=== PATIENT | female | born 1980 | race Caucasian/White ===

== ENCOUNTER 2019-10-09 14:07 | Outpatient (RCR) | payer BC, SELFPAY ==
[2019-10-09 14:11] VITALS: BMI 35.7
[2019-10-09 14:13] VITALS: BMI 35.7
== END 2019-12-12 08:04 | disposition home or self-care (01) ==
LOC: ANHDMC 14:07
PROVIDERS: Visit Provider Internal Medicine
DX: O24.419 Gestational diabetes mellitus in pregnancy, unspecified control (principal); Z71.3 Dietary counseling and surveillance; Z71.89 Other specified counseling; Z3A.28 28 weeks gestation of pregnancy
CPT/HCPCS: 97802; G0108

== ENCOUNTER 2019-12-22 11:45 | Outpatient (RCR) | payer BC, SELFPAY ==
[2019-11-20 11:55] VITALS: BP 114/62; PULSE 100
[2019-11-24 12:03] VITALS: BP 114/58; PULSE 81
[2019-11-27 12:44] VITALS: BP 110/73; PULSE 84
[2019-12-01 12:16] VITALS: BP 123/65; PULSE 81
[2019-12-04 12:59] VITALS: BP 113/64; PULSE 83
[2019-12-08 13:20] VITALS: BP 116/62; PULSE 81
[2019-12-15 15:28] VITALS: BP 112/61; PULSE 70
[2019-12-18 12:50] VITALS: BP 117/69; PULSE 86
--- NOTE | ~2019-12-22 | US_ITS ---
EXAMINATION: US OB BPP wo non-stress DATE: 11/27/2019 12:33 INDICATION: Maternal gestational diabetes. Third trimester. TECHNIQUE: Real-time pelvic ultrasound was performed. The interpreting radiologist was not present fo r the study. COMPARISON: None. FINDINGS: There is a single living fetus in vertex presentation. The placenta is fundal. heart rate is 1 38 beats per minute (bpm). Biophysical profile performed by the technologist: breathing (30 sec sustained breathing in 30 minutes): 2 out of 2 movement (3 gross body movements in 30 minutes): 2 out of 2 tone (one episode of rsxkwxi-gxsapzwvr-yiornad limb movement): 2 out of 2 Amniotic fluid pocket (2 cm): 2 out of 2 Total score: 8 out of 8 IMPRESSION: 1. Single living fetus in vertex presentation with heart rate of 138 bpm. 2. Biophysical profile 8 out of 8. Reviewed, dictated and finalized at location A.
--- NOTE | ~2019-12-22 | US_ITS ---
EXAMINATION: US OB BPP wo non-stress DATE: 12/18/2019 12:42 INDICATION: Gestational diabetes TECHNIQUE: Real-time pelvic ultrasound was performed. The interpreting radiologist was not present fo r the study. COMPARISON: None. FINDINGS: There is a single living fetus in vertex presentation. The placenta is anterior. heart rate is 141 beats per minute (bpm). Biophysical profile performed by the technologist: breathing (30 sec sustained breathing in 30 minutes): 2 out of 2 movement (3 gross body movements in 30 minutes): 2 out of 2 tone (one episode of toyvyff-abhuikrfo-fuqdlwh limb movement): 2 out of 2 Amniotic fluid pocket (2 cm): 2 out of 2 Total score: 8 out of 8 IMPRESSION: 1. Single living fetus in vertex presentation with heart rate of 141 bpm. 2. Biophysical profile 8 out of 8. Reviewed, dictated and finalized at location A.
--- NOTE | ~2019-12-22 | US_ITS ---
EXAMINATION: US OB BPP wo non-stress EXAM DATE: 11/20/2019 12:31 INDICATION: Gestational diabetes. 3rd trimester. TECHNIQUE: Pelvic obstetrical transabdominal sonogram was performed by a technologist. There are mu ltiple grayscale and Doppler images available for interpretation. There are no earlier studies of th is gestation for comparison. FINDINGS: There is a single fetus identified in vertex presentation with a heart rate of 155 beats pe r minute. The placenta is located in the posterior fundal position. There is no sonographic evidence of retroplacental hemorrhage identified. BIOPHYSICAL PROFILE (performed by the technologist) breathing (30 sec sustained breathing in 30 minutes): 2 out of 2 movement (3 gross body movements in 30 minutes): 2 out of 2 tone (one episode of efwfzeb-sfpadswfv-udewtpt limb movement): 2 out of 2 Amniotic fluid pocket (2 cm): 2 out of 2 Total score: 8 out of 8 IMPRESSION: 1. Single fetus with heart rate of 155 bpm. 2. Normal biophysical profile score of 8 out of 8. Reviewed, dictated and finalized at location B.
--- NOTE | ~2019-12-22 | US_ITS ---
EXAMINATION: US OB BPP wo non-stress DATE: 12/04/2019 12:48 INDICATION: Gestational diabetes TECHNIQUE: Real-time pelvic ultrasound was performed. The interpreting radiologist was not present fo r the study. COMPARISON: 11/27/2019 FINDINGS: There is a single living fetus in vertex presentation. The placenta is anterior. heart rate is 155 beats per minute (bpm). Biophysical profile performed by the technologist: breathing (30 sec sustained breathing in 30 minutes): 2 out of 2 movement (3 gross body movements in 30 minutes): 2 out of 2 tone (one episode of hskgokr-ndartxtif-wbkiiui limb movement): 2 out of 2 Amniotic fluid pocket (2 cm): 2 out of 2 Total score: 8 out of 8 IMPRESSION: 1. Single living fetus in vertex presentation. 2. Biophysical profile 8 out of 8. Reviewed, dictated and finalized at location A.
--- NOTE | ~2019-12-22 | US_ITS ---
EXAMINATION: US OB BPP wo non-stress DATE: 12/11/2019 14:28 INDICATION: Gestational diabetes TECHNIQUE: Real-time pelvic ultrasound was performed. The interpreting radiologist was not present fo r the study. COMPARISON: 12/04/2019 FINDINGS: There is a single living fetus in vertex presentation. The placenta is anterior. heart rate is 136 beats per minute (bpm). Biophysical profile performed by the technologist: breathing (30 sec sustained breathing in 30 minutes): 2 out of 2 movement (3 gross body movements in 30 minutes): 2 out of 2 tone (one episode of ccvdsly-tnpxujjro-agdkkuv limb movement): 2 out of 2 Amniotic fluid pocket (2 cm): 2 out of 2 Total score: 8 out of 8 IMPRESSION: 1. Single living fetus in vertex presentation. 2. Biophysical profile 8 out of 8. Reviewed, dictated and finalized at location B.
[2019-12-22 12:26] VITALS: BP 114/71; PULSE 75
== END 2019-12-29 08:02 | disposition home or self-care (01) ==
LOC: ANHOBOP 11:45
PROVIDERS: PCP Internal Medicine; Visit Provider Obstetrics & Gynecology
DX: O24.419 Gestational diabetes mellitus in pregnancy, unspecified control (principal); Z3A.33 33 weeks gestation of pregnancy; Z3A.34 34 weeks gestation of pregnancy; Z3A.35 35 weeks gestation of pregnancy; Z3A.36 36 weeks gestation of pregnancy; Z3A.37 37 weeks gestation of pregnancy; Z3A.38 38 weeks gestation of pregnancy
CPT/HCPCS: 59025; 76819

== ENCOUNTER 2019-12-25 11:32 | Outpatient (RCR) | payer BC, SELFPAY ==
--- NOTE | ~2019-12-25 | US_ITS ---
EXAMINATION: US OB follow up w BPP DATE: 12/25/2019 13:26 INDICATION: Gestational diabetes. Third trimester. TECHNIQUE: Real-time pelvic ultrasound was performed. COMPARISON: Ultrasound 12/18/2019, 11/20/2019 FINDINGS: There is a single living fetus in vertex presentation. The placenta is anterior. heart rate is 143 beats per minute (bpm). The amniotic fluid index is 11.1 cm, which is normal. The following biometric data were obtained: Biparietal diameter (BPD): 9.2 cm; head circumference (HC): 33.3 cm; abdominal circumference (AC): 35 .2 cm; femur length (FL): 7.7 cm. These measurements are concordant. Estimated weight is 3604 g +/- 541 g, which correlates with 72nd percentile when 01/04/20 is use d as estimated date of delivery. As single measurements, these parameters are each equal to the following estimated gestational ages w ith ranges of +/- 2 standard deviations: BPD: 37 weeks 3 days (34 weeks 1 days - 40 weeks 4 days). HC: 38 weeks 0 days (35 weeks 2 days - 40 weeks 5 days). AC: 39 weeks 1 days (36 weeks 1 days - 42 weeks 1 days). FL: 39 weeks 3 days (36 weeks 2 days - 42 weeks 3 days). estimated gestational age based solely on measurements from this exam is 38 weeks 4 days +/- 2 weeks 5 days. Biophysical profile performed by the technologist: breathing (30 sec sustained breathing in 30 minutes): 2 out of 2 movement (3 gross body movements in 30 minutes): 2 out of 2 tone (one episode of nulnqsd-byebqwjvd-rqioyvc limb movement): 2 out of 2 Amniotic fluid pocket (2 cm): 2 out of 2 Total score: 8 out of 8 IMPRESSION: 1. Single living fetus in vertex presentation. 2. Estimated weight is 3604 g +/- 541 g, which correlates with 72nd percentile when 01/04/20 is used as estimated date of delivery. 3. Biophysical profile 8 out of 8. Reviewed, dictated and finalized at location A. IMPRESSION: 1. Single living fetus in vertex presentation. 2. Estimated weight is 3604 g +/- 541 g, which correlates with 72nd perc entile when 01/04/20 is used as estimated date of delivery. 3. Biophysical profile 8 out of 8.
[2019-12-25 13:46] VITALS: BP 115/58
== END 2019-12-29 08:02 | disposition home or self-care (01) ==
LOC: ANHOBOP 11:32
PROVIDERS: PCP Internal Medicine; Visit Provider Obstetrics & Gynecology
DX: O24.419 Gestational diabetes mellitus in pregnancy, unspecified control (principal); Z3A.38 38 weeks gestation of pregnancy
CPT/HCPCS: 59025; 76816; 76819

== ENCOUNTER 2019-12-28 06:08 | Inpatient (IN) | payer BC, SELFPAY ==
[2019-12-28] VITALS (85 sets, daily range): BP systolic 89–128; BP diastolic 35–92; PULSE 52–277; RESP 16–18; TEMP 36.5–37.1; O2SAT 99–100; BMI 35.8
[2019-12-28] MEDS: LACTATED RINGERS 1,000 ML 125 ML IV CONT ×3 (07:34→11:14)
[2019-12-28] MEDS: OXYTOCIN 30 UNITS/NS 500 ML 30 UNITS/500 ML BAG IV CONT (07:35)
[2019-12-28 07:39] LABS: Basophils Percent Auto 0.1 % (0.2-1.2); Eosinophils Percent Auto 0.3 % (0-4.4); Hematocrit 36.9 % (37.0-47.0); Hemoglobin 12.1 g/dL (12.0-15.0); Immature Granulocyte Absolute 0.05 K/mm3 (0.00-0.031); Immature Granulocyte Percent A 0.6 % (0-0.5); Lymphocytes Absolute Auto 1.59 K/mm3 (0.9-3.2); Lymphocytes Percent Auto 18.2 % (18.3-44.2); Mean Corpuscular HGB Conc 32.8 g/dl (32-36); Mean Corpuscular Hemoglobin 29.7 pg (26-34); Mean Corpuscular Volume 90.7 fl (80-100); Mean Platelet Volume 10.2 fl (7.4-10.4); Monocytes Absolute Auto 0.6 K/mm3 (0.1-0.6); Neutrophils Absolute Auto 6.5 K/mm3 (1.3-6.7); Neutrophils Percent Auto 73.8 % (45.5-73.1); Platelet Count Result 277 k/mm3 (150-375); Red Blood Count 4.07 M/mm3 (4.2-5.4); Red Cell Distribution Width 15.2 % (11.5-14.5); White Blood Count 8.7 K/mm3 (4.5-10.0)
[2019-12-28 07:58] LABS: Alanine Aminotransferase 16 U/L (4-35); Albumin Level 3.4 g/dL (3.5-5.1); Alkaline Phosphatase 116 U/L (38-126); Anion Gap 6 mmol/L (8-16); Aspartate Amino Transferase 28 U/L (14-36); Bilirubin,Total 0.3 mg/dL (0.2-1.3); Blood Urea Nitrogen 17 mg/dL (7-17); Calcium 9.2 mg/dL (8.4-10.2); Carbon Dioxide 20 mmol/L (22-30); Chloride 108 mmol/L (98-107); Estimated Glomerular Filt Rate > 60; Glucose 117 mg/dL (65-105); Potassium 3.7 mmol/L (3.4-5.0); Sodium 134 mmol/L (137-145)
--- NOTE | 2019-12-28 08:13 | LDADM ---
This patient, Edy Couch, was admitted to Labor/Delivery/Recovery 103 on 12/28/19 at 06:08. Plans for labor, pain management and were discussed with patient. Patient/family oriented to hospital policies and general routines including ID bracelet, bed and alarms, visiting hours, pain management, procedures, bathroom and other care routines, personal items, smoking policy, room service/diet and guest tray routines, infant security routines,call light, and visiting hours. Patient/Family are encouraged to report perceived risks to care and to ask questions if they do not understand what they are told or what they should do. See OBIX for further documentation.
--- NOTE | 2019-12-28 09:30 | WPDANESEPP ---
Anes - Eval Pre Procedure Procedure: labor epidural Date/Time: 12/28/19 09:30 Preop Diagnosis: labor pain Pre Op Diagnosis: Induction of Labor Patient Data Age: 39 Gender: F Height: Weight: Last Vital Signs Pulse 63 12/28/19 09:28 BP 101/49 L 12/28/19 09:28 Pulse Ox 100 12/28/19 09:28 Allergies Allergy/AdvReac Type Severity Reaction Status Date / Time amoxicillin AdvReac Mild yeast Verified 12/25/19 14:02 infection Home Medications Medication Instructions Recorded Confirmed Type PNV cmb#95-ferrous fumarate-FA 1 tablet PO DAILY 12/25/19 12/25/19 History [] Laboratory Tests 12/28/19 12/28/19 12/28/19 07:27 07:27 07:27 WBC 8.7 K/mm3 K/mm3 (4.5-10.0) RBC 4.07 M/mm3 L M/mm3 (4.2-5.4) Hgb 12.1 g/dL g/dL (12.0-15.0) Hct 36.9 % L % (37.0-47.0) MCV 90.7 fl fl (80-100) MCH 29.7 pg pg (26-34) MCHC 32.8 g/dl g/dl (32-36) RDW 15.2 % H % (11.5-14.5) Plt Count 277 k/mm3 k/mm3 (150-375) MPV 10.2 fl fl (7.4-10.4) Immature Gran % (Auto) 0.6 % H % (0-0.5) Neut % (Auto) 73.8 % H % (45.5-73.1) Lymph % (Auto) 18.2 % L % (18.3-44.2) Gilchrist % (Auto) 7.0 % % (2.6-8.5) Eos % (Auto) 0.3 % % (0-4.4) Baso % (Auto) 0.1 % L % (0.2-1.2) Lymph # (Auto) 1.59 K/mm3 K/mm3 (0.9-3.2) Gilchrist # (Auto) 0.6 K/mm3 K/mm3 (0.1-0.6) Eos # (Auto) 0.0 K/mm3 K/mm3 (0-0.3) Baso # (Auto) 0.0 K/mm3 K/mm3 (0.0-0.1) Abs Immat Gran (auto) 0.05 K/mm3 H K/mm3 (0.00-0.031) Absolute Neuts (auto) 6.5 K/mm3 K/mm3 (1.3-6.7) Absolute Nucleated RBC 0.0 K/mm3 K/mm3 (0.0-0.012) Nucleated RBC % 0.0 % % (0.0-0.2) Sodium 134 mmol/L L mmol/L (137-145) Potassium 3.7 mmol/L mmol/L (3.4-5.0) Chloride 108 mmol/L H mmol/L (98-107) Carbon Dioxide 20 mmol/L L mmol/L (22-30) Anion Gap 6 mmol/L L mmol/L (8-16) BUN 17 mg/dL mg/dL (7-17) Creatinine 0.50 mg/dL L mg/dL (0.7-1.0) Estim Creat Clear Calc Not Reportable Estimated GFR > 60 (59 - ) Glucose 117 mg/dL H mg/dL (65-105) Calcium 9.2 mg/dL mg/dL (8.4-10.2) Total Bilirubin 0.3 mg/dL mg/dL (0.2-1.3) AST 28 U/L U/L (14-36) ALT 16 U/L U/L (4-35) Alkaline Phosphatase 116 U/L U/L (38-126) Total Protein 6.0 g/dL L g/dL (6.3-8.2) Albumin 3.4 g/dL L g/dL (3.5-5.1) RPR Pending Blood Type Antibody Screen 12/28/19 07:27 WBC RBC Hgb Hct MCV MCH MCHC RDW Plt Count MPV Immature Gran % (Auto) Neut % (Auto) Lymph % (Auto) Gilchrist % (Auto) Eos % (Auto) Baso % (Auto) Lymph # (Auto) Gilchrist # (Auto) Eos # (Auto) Baso # (Auto) Abs Immat Gran (auto) Absolute Neuts (auto) Absolute Nucleated RBC Nucleated RBC % Sodium Potassium Chloride Carbon Dioxide Anion Gap BUN Creatinine Estim Creat Clear Calc Estimated GFR Glucose Calcium Total Bilirubin AST ALT Alkaline Phosphatase Total Protein Albumin RPR Blood Type B Positive Antibody Screen Negative Patient hx anesthesia problems: none Family hx anesthesia problems: none PMFSH Past Medical History Medical History (Updated 12/28/19 @ 09:31 by Andie Bazzi CRNA) Gestational diabetes Migraine Family History Family History Other No pertinent family history Social History Social History (Reviewed 0
--- NOTE | 2019-12-28 12:29 | WPDHPUPDATE1 ---
History and Physical Update Update Date/Time: 12/28/19 12:29 History and Physical has been reviewed, including an updated exam of the patient. There are NO changes in the patient's condition. Risks, benefits, and alternatives have been discussed and questions answered. Patient agrees to proceed with procedure.
--- NOTE | 2019-12-28 12:29 | WPDOBADMIT ---
Obstetrics - Admit Note Admission Note: record reviewed. No pertinent additions to the history and/or any subsequent changes in the physical findings that are not consistent with the expected course of the were found. Additions to the history and/or subsequent changes in the physical findings follow. None.
--- NOTE | 2019-12-28 12:30 | PM.OBPRVD ---
OB - Delivery Note Procedure events: Gestational Diabetes Route of delivery: Laceration description: Periurethral - 1st Degree Delivery repair: chromic Specimen: Yes Estimated blood loss (mL): 300 Anesthesia type: Epidural Disposition: floor Narrative: Patient prepped and draped usual manner for this procedure. Maternal expulsive efforts readily delivered vertex and the rest of baby delivered without difficulty as well. Cord is clamped and cut placenta delivered spontaneously and uterus was well contracted. Cervix vagina vulva were inspected no lacerations or tears. pattie urethral laceration was noted and was bleeding therefore approximated using zevzpz-zm-whdhg suture with good hip hemostasis noted. Red rubber catheter was placed in the urethra to be certain there were still patent and there was no resistance noted. At this point the procedure was considered terminated with immediate postop condition of mother and baby both excellent. Baby Weeks of gestation at delivery: 39 Infant gender: Female Weight (pounds): 7 Weight (ounces): 3 score one minute: 8 score five minutes: 9
[2019-12-28] MEDS: OXYTOCIN 30 UNITS/NS 500 ML 30 UNITS/500 ML BAG 125 UNITS IV CONT (12:36)
[2019-12-28 15:43] LABS: HIV 1/2 Ab P24 Ag Result Negative (Negative)
[2019-12-28] MEDS: IBUPROFEN 600 MG TABLET PO ×2 (16:03→23:28)
[2019-12-28] MEDS: LANOLIN (LANSINOH) 7.5 GM CREAM 1 APPLIC TOPICAL (16:04)
[2019-12-28] MEDS: BENZOCAINE 20% AER SPR (*SP) 56 GM CAN 1 SPRAY TOPICAL (16:05)
[2019-12-28] MEDS: WITCH HAZEL 40 PADS 1 PAD TOPICAL (16:05)
--- NOTE | 2019-12-28 18:34 | PC.NURSE ---
1458 Pt admitted to room 279 per wheelchair from labor and delivery after vaginal delivery of viable female at [address] Davis. Mother is a and is choosing to breast feed . FOB present; Couple oriented to room, staffing and procedures; admission folder reviewed, including mother -baby guide. Pt's VSS and assessment WNL.
[2019-12-29 04:31] LABS: Hematocrit 32.6 % (37.0-47.0); Hemoglobin 10.7 g/dL (12.0-15.0)
[2019-12-29] MEDS: IBUPROFEN 600 MG TABLET PO ×2 (06:57→15:13)
[2019-12-29] MEDS: DOCUSATE SODIUM 100 MG CAPSULE PO (06:57)
[2019-12-29] MEDS: MULTIVIT/MIN/PREN/FOL AC/IRON TABLET 1 TAB PO (06:57)
[2019-12-29 07:00] VITALS: BP 98/54; PULSE 73; RESP 18; TEMP 36.6; O2SAT 100
--- NOTE | 2019-12-29 07:13 | PM.OBDSVD ---
DS: Admitting Diagnosis Admitting Diagnosis Admitting Diagnosis: Induction of Labor OB - DS: Summary OB Procedures : None OB Procedures Intrapartum: Spontaneous Vag Delivery OB Procedures: : None Time Spent with Patient Time attestation: Total time spent providing and/or coordinating discharge services: DS: Data Data Completed and Pending Pending studies at discharge: Pending at discharge 12/28/19 12:34 Surgical [PTH] Routine Labs on day of discharge: Labs from last 24 hours 12/29/19 12/28/19 12/28/19 04:16 07:27 07:27 WBC RBC Hgb 10.7 L Hct 32.6 L MCV MCH MCHC RDW Plt Count MPV Immature Gran % (Auto) Neut % (Auto) Lymph % (Auto) [place] % (Auto) Eos % (Auto) Baso % (Auto) Lymph # (Auto) [place] # (Auto) Eos # (Auto) Baso # (Auto) Abs Immat Gran (auto) Absolute Neuts (auto) Absolute Nucleated RBC Nucleated RBC % Sodium Potassium Chloride Carbon Dioxide Anion Gap BUN Creatinine Estim Creat Clear Calc Estimated GFR Glucose Calcium Total Bilirubin AST ALT Alkaline Phosphatase Total Protein Albumin RPR HIV 1&2 Ab/P24 Ag 4thGn Negative Blood Type B Positive Antibody Screen Negative 12/28/19 12/28/19 12/28/19 07:27 07:27 07:27 WBC 8.7 RBC 4.07 L Hgb 12.1 Hct 36.9 L MCV 90.7 MCH 29.7 MCHC 32.8 RDW 15.2 H Plt Count 277 MPV 10.2 Immature Gran % (Auto) 0.6 H Neut % (Auto) 73.8 H Lymph % (Auto) 18.2 L [place] % (Auto) 7.0 Eos % (Auto) 0.3 Baso % (Auto) 0.1 L Lymph # (Auto) 1.59 [place] # (Auto) 0.6 Eos # (Auto) 0.0 Baso # (Auto) 0.0 Abs Immat Gran (auto) 0.05 H Absolute Neuts (auto) 6.5 Absolute Nucleated RBC 0.0 Nucleated RBC % 0.0 Sodium 134 L Potassium 3.7 Chloride 108 H Carbon Dioxide 20 L Anion Gap 6 L BUN 17 Creatinine 0.50 L Estim Creat Clear Calc Not Reportable Estimated GFR > 60 Glucose 117 H Calcium 9.2 Total Bilirubin 0.3 AST 28 ALT 16 Alkaline Phosphatase 116 Total Protein 6.0 L Albumin 3.4 L RPR Pending HIV 1&2 Ab/P24 Ag 4thGn Blood Type Antibody Screen Discharge Plan Discharge Discharging Clinician: Nazario Davis Patient Disposition: Home, Self-Care Activity: as tolerated Diet: as tolerated Patient Instructions: Antibiotic Form Stand Alone Forms: General Discharge Information Follow-up/Referrals: Nazario Davis MD [Physician] - 3 Weeks Discharge Medications: New ibuprofen 600 mg Tablet 600 mg PO Q6H PRN (Reason: Cramping) Qty: 30 RF: 0 Continued PNV cmb#95-ferrous fumarate-FA [] 28 mg iron- 800 mcg Tablet 1 tablet PO DAILY RF: 0 Date of admission: 12/28/19 06:08 Primary Care Provider: David,Francisco Wilson Admitting Provider: Nazario Davis Attending physician on admission: Nazario Davis Condition: Stable
--- NOTE | 2019-12-29 08:29 | WPDANLDPN2 ---
Anes-Prog Note L&D Date/Time: 12/29/19 08:29 Comfortable throughout: labor and delivery Neuraxial method: epidural Epidural/Spinal procedure site: clean & non-tender Neuro status: Neuro function grossly intact. Cardiovascular status: normal Respiratory status: normal Airway patency: baseline Mental status: baseline Post-Op hydration status: normal Vital Signs: Last Vital Signs Temp 37.1 C 12/28/19 19:00 Pulse 54 L 12/28/19 19:00 Resp 18 12/28/19 19:00 BP 117/60 12/28/19 19:00 Pulse Ox 99 12/28/19 19:00 Pain score (VAS): 04/11 Post-procedural complaints: none Patient feedback: Patient satisfied with anesthetic care.
[2019-12-29 11:43] LABS: Rapid Plasma Reagin Non-Reactive (NonReactive)
[2019-12-29 19:17] VITALS: BP 120/68; PULSE 80; RESP 16; TEMP 36.7; O2SAT 100
[2019-12-30] MEDS: IBUPROFEN 600 MG TABLET PO (05:31)
[2019-12-30 07:55] VITALS: BP 116/59; PULSE 86; RESP 18; TEMP 37.3; O2SAT 99
[2019-12-30 09:06] VITALS: PULSE 86; RESP 18; O2SAT 99
[2019-12-30] MEDS: ACETAMINOPHEN 325 MG TABLET 650 MG PO (09:06)
[2019-12-30] MEDS: DOCUSATE SODIUM 100 MG CAPSULE PO (09:06)
[2019-12-30] MEDS: MULTIVIT/MIN/PREN/FOL AC/IRON TABLET 1 TAB PO (09:06)
--- NOTE | 2019-12-30 10:00 | PC.NURSE ---
Addendum entered by Yosvany Park RN 12/30/19 10:01: Actual time of notation was at 0730 Original Note: PT introductions made and plan of care discussed per post , pain management, breast feeding, daily care activities and pending discharge to home. PT verbalized understanding of such care.
--- NOTE | 2019-12-30 13:00 | PC.NURSE ---
PT received discharge instructions per protocol and verbalized understanding of such instructions.
--- NOTE | 2019-12-30 13:50 | PC.NURSE ---
PT discharged to home ambulatory accompanied by spouse and and taken to waiting car. follow up appts confirmed
--- NOTE | 2020-01-01 09:28 | PM.OBDSVD ---
DS: Admitting Diagnosis Admitting Diagnosis Admitting Diagnosis: Induction of Labor OB - DS: Summary OB Procedures : None OB Procedures Intrapartum: Spontaneous Vag Delivery OB Procedures: : None Time Spent with Patient Time attestation: Total time spent providing and/or coordinating discharge services: DS: Data Data Completed and Pending Completed studies during hospitalization: Pending at discharge 12/28/19 12:34 Surgical [PTH] Routine Discharge Plan Discharge Discharging Clinician: Nazario Davis Patient Disposition: Home, Self-Care Activity: as tolerated Diet: as tolerated Discharge Instructions: Education: Mom and Baby Guide Given to: Mother Follow-Up: Call your delivering provider's office for an appointment to be seen in: 3 weeks Mom and baby should come to the [facility] for the follow-up appointment. Appointment Date/Time: December 31, 2020 at 10:00 am What to expect at your follow-up visit: Blood Pressure Check Call [phone] if you are unable to keep your appointment time. BREAST CARE: * Wear a snug supportive bra. * For engorgement discomfort: Breast Feeding: * Apply warm moist washcloths * Express milk as needed to relieve engorgement * Wear loose clothing Bottle Feeding: * May apply ice packs * For sore nipples: * Identify correct latch-on * Apply warm moist washcloths before and after nursing * Air dry nipples after nursing * May apply Lansinoh cream to nipples PERINEAL CARE: * Until bleeding stops, use your pattie bottle after urinating * Change your pad frequently throughout the day * You may take sitz baths several times a day (fill your bathtub with warm water and soak for 20 minutes.) Do NOT bathe in the water * No tub baths until seen by your physician - You may shower ACTIVITY: * Rest as much as possible. * Do not exercise or lift anything heavier than your baby (such as laundry or other children.) * Avoid stairs or driving as much as possible. * Do not put anything into the vagina. No douching, tampons, or sexual activity until seen by physician. NOTIFY PHYSICIAN IF YOU HAVE ANY QUESTIONS OR IF ANY OF THE FOLLOWING SYMPTOMS OCCUR: * If your perineum becomes red, swollen, or more painful than what you have experienced in the hospital. * If your vaginal bleeding becomes foul smelling. * If your vaginal bleeding becomes more heavy than a period or if your bleeding changes from pink to bright red. However, you may pass an occasional walnut-sized clot once or twice for the first week . * If you experience a sharp, shooting pain in you calves. * If you discover a hard, reddened area on your breast or if you experience flu-like symptoms. * If you have a fever of 100.4 or greater DIET: * Eat regular, well-balanced meals. * Drink plenty of fluids daily. If , drink to thirst. Patient Instructions: Antibiotic Form Stand Alone Forms: General Discharge Information Follow-up/Referrals: Nazario Davis MD [Physician] - 3 Weeks Discharge Medications: New ibuprofen 600 mg Tablet 600 mg PO Q6H PRN (Reason: Cramping) Qty: 30 RF: 0 Continued PNV cmb#95-ferrous fumarate-FA [] 28 mg iron- 800 mcg Tablet 1 tablet PO DAILY RF: 0 Date of admission: 12/28/19 06:08 Primary Care Provider: Guillermo,Francisco Wilson Admitting Provider: Nazario Davis Discharge Date/Time: 12/30/19 13:50 Attending physician on admission: Nazario Davis Condition: Stable
[2020-01-01 10:13] VITALS: BP 129/74; PULSE 69; RESP 16; TEMP 36.7; O2SAT 100
== END 2019-12-30 13:50 | disposition home or self-care (01) | DRG 807 ==
LOC: ANHLDR 06:14 → ANHOB2 15:03
PROVIDERS: Admitting Provider Obstetrics & Gynecology; PCP Internal Medicine; Visit Provider Obstetrics & Gynecology
DX: O24.420 Gestational diabetes mellitus in childbirth, diet controlled (principal); Z37.0 Single live birth; Z3A.39 39 weeks gestation of pregnancy; O77.0 Labor and delivery complicated by meconium in amniotic fluid; O70.0 First degree perineal laceration during delivery; O36.8330 Maternal care for abnormalities of the fetal heart rate or rhythm, third trimester, not applicable or unspecified
CPT/HCPCS: 36415; 80053; 85014; 85018; 85025; 86592; 86703; 86850; 86900; 86901; 88307; A9270; G0432; J2590; J2795; J7120

== ENCOUNTER 2021-03-24 16:20 | Outpatient (CLI) | payer OTHER, SELFPAY ==
--- NOTE | ~2021-03-24 | MM_ITS ---
EXAMINATION: MM screening chantal BI w martin HISTORY: Screening TECHNIQUE: Craniocaudal and mediolateral oblique 3-D tomosynthesis images were obtained and synthetic 2-D images were generated. CAD analysis was submitted and interpreted. COMPARISON: No prior mammogram is available for comparison at this institution. BREAST PARENCHYMAL COMPOSITION: There are scattered areas of fibroglandular density. FINDINGS: There is no evidence of suspicious mass, calcification, or architectural distortion to sugg est malignancy in either breast. There has been no suspicious interval change. IMPRESSION: 1. No mammographic evidence of malignancy. 2. Recommend routine screening mammography in one year. BI-RADS Category 1: Negative Reviewed, dictated and finalized at location A. [employer]
== END 2021-03-24 16:21 | disposition home or self-care (01) ==
LOC: ANHIMG 16:23
PROVIDERS: PCP Internal Medicine; Visit Provider Obstetrics & Gynecology
DX: Z12.31 Encounter for screening mammogram for malignant neoplasm of breast (principal)
CPT/HCPCS: 77063; 77067

== ENCOUNTER 2022-07-20 17:35 | Outpatient (CLI) | payer OTHER, SELFPAY ==
--- NOTE | ~2022-07-20 | MM_ITS ---
EXAMINATION: MM screening chantal BI w martin HISTORY: Screening mammogram TECHNIQUE: Craniocaudal and mediolateral oblique 3-D tomosynthesis images were obtained and synthetic 2-D images were generated. CAD analysis was submitted and interpreted. COMPARISON: 03/24/2021 bilateral screening mammogram examination BREAST PARENCHYMAL COMPOSITION: There are scattered areas of fibroglandular density. FINDINGS: Stable mild fibroglandular asymmetry. There is no evidence of suspicious mass, calcificatio n, or architectural distortion to suggest malignancy in either breast. There has been no suspicious i nterval change. IMPRESSION: 1. No mammographic evidence of malignancy. 2. Recommend routine screening mammography in one year. BI-RADS Category 1: Negative Reviewed, dictated and finalized at location B.
== END 2022-07-20 17:36 | disposition home or self-care (01) ==
LOC: ANHIMG 17:36
PROVIDERS: PCP Internal Medicine; Visit Provider Obstetrics & Gynecology
DX: Z12.31 Encounter for screening mammogram for malignant neoplasm of breast (principal)
CPT/HCPCS: 77063; 77067

== ENCOUNTER 2022-10-27 00:37 | Day surgery (SDC) | payer OTHER, SELFPAY ==
[2022-10-23 16:42] VITALS: BMI 34.3
--- NOTE | 2022-10-23 17:06 | PC.NURSE ---
Report to the Outpatient Waiting Room, entrance under the green pavilion located off [facility], at 0615 on 10-27-22. Planned Procedure Time: 0815. Time changes happen often and if your time is changed the preop area will call you the afternoon before. - You and your visitor will be asked to self-screen and do not enter if you have any COVID symptoms. - A mask is optional within the hospital at this time. Patients may have clear liquids (water, carbonated beverages, clear teas, apple juice) until 3 hours prior to surgery with a maximum of 20 ounces. 0515 - No food from midnight until time of surgery - Infants may have breast milk until 4 hours before surgery, formula 6 hours prior to surgery. - Children will be allowed to drink immediately following surgery. If applicable, please bring a bottle or sippy cup to assist with drinking. Juice, water, soda, and popsicles are readily available. For infants on formula, please bring formula the day of surgery. Pacifiers are allowed. Take the following medications with a SIP of water the morning of surgery: Tylenol if needed DO NOT STOP ANY OF YOUR OTHER PRESCRIPTION MEDICATIONS PRIOR TO SURGERY ?EXCEPT THE FOLLOWING Medications to discontinue per physician: Vitamins and supplements Date to take last dose: 10-24-22 Please no make-up, nail greek, hairspray, perfume, deodorant, or body powder the day of surgery. No jewelry (including any body piercings) or valuables the day of surgery, leave them at home. Please take a shower or bath the night before, or the morning of, surgery with an antibacterial soap. Wear comfortable, loose fitting clothing. Children are encouraged to wear pajamas. - Jewelry must be removed prior to entering the operating room. Rings and piercings that are not removed may be cut off. - The hospital will not accept responsibility for valuables. - Please leave all valuables, including medications, at home the day of surgery. If you are going home after surgery, a licensed professional driver must drive you home. - NO public transportation without another adult if you receive anesthesia. - We recommend that an adult stay with you for 24 hours following discharge. - We also recommend that you do not drive, make important decision, drink alcoholic beverages, or take any drugs that were not prescribed by your health care provider for at least 24 hours after your discharge time. For Pediatric surgeries, we recommend two adults accompany the child home. Follow any additional instructions given to you from your surgeon. If you or anyone in your household have experienced Covid symptoms in the past week, please notify your surgeon or the nurse liaison at the phone number below for possible testing. Telephone instructions given to Serenity Couch and asked if any additional questions and then verbalized understanding. Patient advised to call surgeon office or pre surgery nurse liaison [phone] if any additional questions.
--- NOTE | 2022-10-25 18:22 | P.HP_ITS ---
H&P: HPI History of Present Illness Date/Time: 10/25/22 18:22 Chief Complaint: stress incontinence Narrative: she has urodynamics confirmed stress incontinence. She desires treatment. She would like a surgical option Review of Systems Review of Systems: All systems reviewed & are unremarkable except as noted in HPI and below PMFSH Past Medical History Medical History Gestational diabetes HPV in female Migraine Screening mammogram, encounter for Surgical History Surgical History H/O LEEP (~04/21/00) History of colposcopy (05/23/17) History of colposcopy (03/05/14) Benign History of colposcopy (09/01/04) benign History of colposcopy (05/30/04) Colposcopy - HPV changes, but no dysplasia History of colposcopy (05/07/03) colposcopy& cervical Bx- benign Family History Family History Other Breast cancer maternal aunt Other No pertinent family history Social History Social History Smoking status: Never smoker Second hand tobacco smoke exposure: No Additional smoking assessment comments: Pt last smoke MJ 04/2019, denies being a smoker Alcohol intake: current Drinks per week: 6 Alcohol use details: occasionally drinks on the weekends Substance use: never Substance use type: does not use Lack of Transportation: No Lack of Food: Never True Current Housing: I Have Housing Concerned About Future Housing: No Difficulty Paying Gas/Electric Bills: No Difficulty Paying for Meds: No Currently Unemployed: No Education: Bachelor's Degree Difficulty w/ Childcare or Family Care: No Living arrangements: with family Additional living arrangements comments: Occupation/Education: occupation 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 Gender identity (if verbalized by the patient): Female Sexual Orientation (if Verbalized by the Patient): Straight or Heterosexual Spiritual care concerns: No Meds Home Medications and Allergies Home Medications Medication Instructions Recorded Confirmed Type ibuprofen 600 mg tablet 600 mg PO Q6H PRN Cramping #30 tabs 12/29/19 10/23/22 Rx norethindrone 1 mg-ethinyl 1 tablet PO DAILY #84 tabs 10/10/22 10/23/22 Rx estradiol 20 mcg (24)-iron 75 mg (4) tablet (Blisovi 24 Fe) acetaminophen 500 mg capsule 500 mg PO Q6H PRN Pain 10/23/22 10/23/22 History Allergies Allergy/AdvReac Type Severity Reaction Status Date / Time amoxicillin AdvReac Mild yeast Verified 10/23/22 16:36 infection Exam Narrative: no acute distress normal breathing urethral hypermobility Assessment and Plan Assessment and plan (1) SARMAD (stress urinary incontinence, female): Code(s): N39.3 - Stress incontinence (female) (male) Status: Acute Assessment and Plan: urethral sling. Understands risks of bleeding, infection, damage to surroundi ng organs, damage to the urinary tract, vaginal mesh extrusion, urinary tract mesh erosion, need for ancillary procedures, persistent or recurrent stress incontinence. She agrees to proceed
--- NOTE | 2022-10-26 08:57 | WPDANESEPPF ---
Anes - Initial Pre Proc Eval Procedure: Operation Date: 10/27/22 08:15 Proposed Procedures p Urethral Sling - Tomi Carter MD Date/Time: 10/26/22 08:57 Surgeon: Tomi Carter MD Pre Op Diagnosis: Stress Incon Patient Data Age: 41 Gender: F Height: 1.63 m Weight: 90.72 kg Allergies Allergy/AdvReac Type Severity Reaction Status Date / Time amoxicillin AdvReac Mild yeast Verified 10/27/22 06:38 infection Home Medications Medication Instructions Recorded Confirmed Type ibuprofen 600 mg tablet 600 mg PO Q6H PRN Cramping #30 tabs 12/29/19 10/23/22 Rx norethindrone 1 mg-ethinyl 1 tablet PO DAILY #84 tabs 10/10/22 10/23/22 Rx estradiol 20 mcg (24)-iron 75 mg (4) tablet (Blisovi 24 Fe) acetaminophen 500 mg capsule 500 mg PO Q6H PRN Pain 10/23/22 10/23/22 History Patient hx anesthesia problems: none Family hx anesthesia problems: none Results Review: All pre-operative results and documents have been reviewed as part of the pre-operative evaluation. [facility] Past Medical History Medical History Gestational diabetes HPV in female Migraine Screening mammogram, encounter for Surgical History Surgical History H/O LEEP (~04/21/00) History of colposcopy (05/23/17) History of colposcopy (03/05/14) Benign History of colposcopy (09/01/04) benign History of colposcopy (05/30/04) Colposcopy - HPV changes, but no dysplasia History of colposcopy (05/07/03) colposcopy& cervical Bx- benign Family History Family History Other Breast cancer maternal aunt Other No pertinent family history Social History Social History Smoking status: Never smoker Second hand tobacco smoke exposure: No Additional smoking assessment comments: Pt last smoke MJ 04/2019, denies being a smoker Alcohol intake: current Drinks per week: 6 Alcohol use details: occasionally drinks on the weekends Substance use: never Substance use type: does not use Lack of Transportation: No Lack of Food: Never True Current Housing: I Have Housing Concerned About Future Housing: No Difficulty Paying Gas/Electric Bills: No Difficulty Paying for Meds: No Currently Unemployed: No Education: Bachelor's Degree Difficulty w/ Childcare or Family Care: No Living arrangements: with family Additional living arrangements comments: Occupation/Education: 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 Gender identity (if verbalized by the patient): Female Sexual Orientation (if Verbalized by the Patient): Straight or Heterosexual Spiritual care concerns: No Anes - Eval Final PreProcedure Day of Procedure 10/26/22 08:57 Patient weight: obese Heart: regular rate and rhythm Lungs: clear to auscultation Airway: Mallampati scale class II Neurological: alert and oriented Last oral intake: >/= 8 hours ASA classification: II Emergent: no Anesthetic plan: proceed Anesthesia type and monitoring: general GIVS and standard monitoring Results Review: All pre-operative results and documents have been reviewed as part of the pre-operative evaluation. Informed Consent: The patient's anesthetic plan and its attendant risks and benefits were discussed with the patient/family/POA. Questions were solicited and answers provided to the satisfaction of the patient/family/POA.
[2022-10-27 06:39] VITALS: BP 140/88; PULSE 79; RESP 16; TEMP 37.2; O2SAT 98
[2022-10-27] MEDS: LACTATED RINGERS 1,000 ML 30 ML IV CONT (07:06)
--- NOTE | 2022-10-27 07:21 | WPDHPUPDATE1 ---
History and Physical Update Update Date/Time: 10/27/22 07:21 History and Physical has been reviewed, including an updated exam of the patient. There are NO changes in the patient's condition. Risks, benefits, and alternatives have been discussed and questions answered. Patient agrees to proceed with procedure.
[2022-10-27] MEDS: ceFAZolin 2 GM/D5W 50 ML 2 GM/50 ML BAG IVPB (07:57)
[2022-10-27] MEDS: BUPIVACAINE/EPINEPHRINE 0.25% 10 ML VIAL 20 ML INFILTRATE (08:09)
--- NOTE | 2022-10-27 08:23 | P.OP_ITS ---
Procedure Note - Detailed Date of Procedure 10/27/22 Pre-op Diagnosis Stress Incontinence Post-op Diagnosis Same Procedure Performed mid urethral sling cystoscopy Surgeon Tomi Carter MD Anesthesia MAC and Local Indications This is a female with confirm stress urinary incontinence. She desires surgical correction. She understands the risks of bleeding, infection, injury to the urinary tract, vaginal mesh extrusion, urinary tract mesh erosion, obstructive voiding requiring a secondary procedure, hip and leg pain, dyspareunia, inability to improve overactive bladder symptoms. She agrees to proceed. Description of Procedure She was correctly identified. Informed consent obtained. She was brought the operating room. She was given appropriate anesthesia. She was given appropriate perioperative antibiotics. A time-out performed. I marked out the site of the inner thigh incisions. I anesthetized the skin and made those incisions. I anesthetized the anterior vaginal wall over the mid urethra. I made a 1 cm incision. I dissected out laterally taking great care not to injure the refilled vaginal wall. I passed the helical trocars. First on the left. Then on the right. I did this from the thigh incision towards the vaginal incis ion. The sling was connected to the trocars and brought out through the thigh incision. I tensioned the sling appropriately. I cut and the plastic sheaths. I then closed the incision with 2 0 Vicryl. On cystoscopy there is no tumors or surgical artifact. There was no surgical artifact in the urethra. I cut the excess sling material. Close incisions with glue. She was awakened and transferred to the PACU in stable condition. Implants Urethral sling Estimated Blood Loss 20 Drains No Packing No Pathology None sent Complications No immediate complications Condition Stable Disposition PACU
[2022-10-27 08:24] VITALS: BP 126/83; PULSE 89; RESP 16; O2SAT 98
[2022-10-27 08:50] VITALS: BP 145/59; PULSE 67; RESP 16
[2022-10-27 09:09] VITALS: BP 132/76; PULSE 58; RESP 16
== END 2022-10-27 09:15 | disposition home or self-care (01) ==
PROVIDERS: Visit Provider Urology
PROC: (CPT 51992; principal; 2022-10-27 08:15)
DX: N39.3 Stress incontinence (female) (male) (principal); N32.81 Overactive bladder; E66.9 Obesity, unspecified; Z68.35 Body mass index [BMI] 35.0-35.9, adult
CPT/HCPCS: 51992; C1771; J0690; J2250; J2704; J3010; J7030; J7120

== ENCOUNTER 2024-02-13 09:47 | Outpatient (CLI) | payer OTHER, SELFPAY ==
--- NOTE | ~2024-02-13 | MM_ITS ---
EXAMINATION: MM screening chantal BI w martin HISTORY: Screening mammogram TECHNIQUE: Craniocaudal and mediolateral oblique 3-D tomosynthesis images were obtained and synthetic 2-D images were generated. CAD analysis was submitted and interpreted. COMPARISON: 07/20/2022, 03/24/2021 BREAST PARENCHYMAL COMPOSITION:Not Dense. There are scattered areas of fibroglandular density. FINDINGS: No suspicious mass, calcification, or architectural distortion are identified in either christin ast to suggest malignancy. There has been no suspicious interval change. IMPRESSION: No mammographic evidence of malignancy. Recommend routine screening mammography in one year. BI-RADS Category 1: Negative Reviewed, dictated and finalized at location . 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
== END 2024-02-13 09:48 | disposition home or self-care (01) ==
LOC: ANHIMG 09:48
PROVIDERS: PCP Family Medicine; Visit Provider Obstetrics & Gynecology
DX: Z12.31 Encounter for screening mammogram for malignant neoplasm of breast (principal)
CPT/HCPCS: 77063; 77067